=== PATIENT | female | born 1970 | race Caucasian/White ===

== ENCOUNTER 2018-07-21 11:17 | Emergency (ER) | payer OTHER ==
--- NOTE | 2018-07-21 11:50 | ER Report ---
History and Physical Time Seen By MD: 11:50 Hx. of Stated Complaint: BODY ACHES, HEADACHE, N/V HPI/ROS CHIEF COMPLAINT: Congestion, cough, shortness of breath, head pressure 2 days HISTORY OF PRESENT ILLNESS: 48-year-old female patient presents to emergency room with complaint of congestion, cough, shortness of breath, had pressure 2 days. 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 She states that she took a nap. She states upon waking after that that she had body aches, fevers, chills, cough, shortness of breath and head pressure. She states that currently her pain is a 7-8 out of 10. She states that it was worse over the last couple of days. She also mentions that she did have a fall 2 weeks ago and hit the back of her head. Patient denies having a flu shot this year. Patient states she's taken Sherry aspirin for this. 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 REVIEW OF SYSTEMS: Respiratory: As noted above. Cardiovascular: No chest pain, no palpitations. Gastrointestinal: No vomiting, no abdominal pain. Musculoskeletal: Generalized body aches. Allergies: Coded Allergies: cephalexin (Verified Allergy, Unknown, 07/21/18) Home Meds Active Scripts Ondansetron Hcl (ZOFRAN) 4 Mg Tablet, 4 MG PO Q6H PRN for NAUSEA/VOMITING, #20 TAB Prov:TASHA JOSHI [facility] 07/21/18 Benzonatate 100 Mg Cap (TESSALON PERLE 100 MG CAP) 100 Mg Capsule, 100 MG PO TID PRN for COUGH, #15 CAP Prov:TASHA JOSHI [facility] 07/21/18 Promethazine HCl/Codeine (Prometh-Codein 6.25-10 mg/5 ml) 5 Ml Syrup, 1 TSP PO QHS PRN for COUGH, #35 ML Prov:TASHA JOSHI [facility] 07/21/18 Oseltamivir Phosphate (TAMIFLU) 75 Mg Cap, 75 MG PO BID, #9 CAP Prov:TASHA JOSHI [facility] 07/21/18 Past Medical/Surgical History Patient has a past medical history of Lyme disease, cervical cancer. Patient has bilateral anterior cruciate ligament repairs, surgery for her cervical cancer. Reviewed Nurses Notes: Yes Constitutional Vital Sign - Last 24 Hours 07/21/18 07/21/18 07/21/18 07/21/18 11:20 11:47 11:49 12:00 Temp 99.9 Pulse 108 ??? Resp 22 B/P (MAP) 118/81 113/79 (90) 104/71 (82) Pulse Ox 96 O2 Delivery Room Air 07/21/18 07/21/18 07/21/18 07/21/18 12:17 12:30 12:47 13:00 Pulse 91 104 Resp 21 B/P (MAP) 104/75 (85) 107/71 (83) Pulse Ox 94 83 07/21/18 07/21/18 07/21/18 07/21/18 13:17 13:36 13:47 14:00 Pulse ??? 101 Resp 13 B/P (MAP) 113/79 (90) 118/65 (82) Pulse Ox 88 07/21/18 14:17 Pulse 93 Resp 15 Pulse Ox 95 Physical Exam General Appearance: The patient is alert, has no immediate need for airway protection and no current signs of toxicity. Respiratory: Chest is non tender, lungs are clear to auscultation. Cardiac: regular rate and rhythm Gastrointestinal: Abdomen is soft and non tender, no masses, bowel sounds normal. Musculoskeletal: Neck: Neck is supple and non tender. Extremities have full range of motion and are non tender. Skin: No rashes or lesions. DIFFERENTIAL DIAGNOSIS: After history and physical exam differential diagnosis w as considered for fever in adults including but not limited to pneumonia, urinary tract infection, viral syndrome, and influenza. Medical Decision Making Data Points Result Diagram: 07/21/18 1215 07/21/18 1215 Laboratory Hematology Test 07/21/18 11:57 07/21/18 12:15 07/21/18 12:40 Influenza Virus Type A (PCR) Positive (NEGATIVE) Influenza Virus Type B (PCR) Negative (NEGATIVE) Red Blood Count 4.93 M/uL (4.17-5.56) Mean Corpuscular Volume 83.3 fL (80.0-96.0) Mean Corpuscular Hemoglobin 28.4 pg (26.0-33.0) Mean Corpuscular Hemoglobin Concent 34.1 g/dL (32.0-36.0) Red Cell Distribution Width 14.5 % (11.5-14.5) Mean Platelet Volume 7.8 fL (7.2-11.1) Neutrophils (%) (Auto) 64.1 % (39.4-72.5) Lymphocytes (%) (Auto) 17.6 % (17.6-49.6) Monocytes (%) (Auto) 17.8 % (4.1-12.4) Eosinophils (%) (Auto) 0.1 % (0.4-6.7) Basophils (%) (Auto) 0.4 % (0.3-1.4) Nucleated RBC Relative Count (auto) 0.1 /100WBC Neutrophils # (Auto) 3.2 K/uL (2.0-7.4) Lymphocytes # (Auto) 0.9 K/uL (1.3-3.6) Monocytes # (Auto) 0.9 K/uL (0.3-1.0) Eosinophils # (Auto) 0.0 K/uL (0.0-0.5) Basophils # (Auto) 0.0 K/uL (0.0-0.1) Nucleated RBC Absolute Count (auto) 0.01 K/uL Erythrocyte Sedimentation Rate 20 mm/HOUR (0-20) Sodium Level 136 mmol/L (137-145) Potassium Level 4.0 mmol/L (3.5-5.0) Chloride Level 108 mmol/L (98-107) Carbon Dioxide Level 19 mmol/L (22-31) Blood Urea Nitrogen 14 mg/dl (7-18) Creatinine 0.70 mg/dl (0.52-1.04) Glomerular Filtration Rate Calc > 60.0 Random Glucose 100 mg/dl (75-110) Calcium Level 9.2 mg/dl (8.4-10.2) Total Bilirubin 0.7 mg/dl (0.2-1.3) Aspartate Amino Transf (AST/SGOT) 40 U/L (0-35) Alanine Aminotransferase (ALT/SGPT) 54 U/L (0-56) Alkaline Phosphatase 112 U/L (0-126) C-Reactive Protein 1.3 mg/dl (<1.0) Total Protein 7.1 g/dl (6.3-8.2) Albumin 4.2 g/dl (3.5-5.0) Human Chorionic Gonadotropin, Qual Negative (NEGATIVE) Urine Color Yellow Urine Clarity Slightly-cloudy Urine pH 5.0 pH (4.8-9.5) Urine Specific Paulina 1.019 Urine Protein Negative mg/dL (NEGATIVE) Urine Glucose (UA) Negative mg/dL (NEGATIVE) Urine Ketones Trace mg/dL (NEGATIVE) Urine Blood Negative (NEGATIVE) Urine Nitrite Negative (NEGATIVE) Urine Bilirubin Negative (NEGATIVE) Urine Urobilinogen 2.0 mg/dL (0.2-1.9) Urine Leukocyte Esterase Negative (NEGATIVE) Urine RBC None /HPF (0-2/HPF) Urine WBC 4 /HPF (0-5/HPF) Urine Squamous Epithelial Cells Many /LPF (</=FEW) Urine Bacteria Negative /HPF (NONE-FEW) Urine Mucus Few /HPF (NONE-FEW) Chemistry Test 07/21/18 11:57 07/21/18 12:15 07/21/18 12:40 Influenza Virus Type A (PCR) Positive (NEGATIVE) Influenza Virus Type B (PCR) Negative (NEGATIVE) White Blood Count 5.0 k/uL (4.5-11.0) Red Blood Count 4.93 M/uL (4.17-5.56) Hemoglobin 14.0 g/dL (12.0-16.0) Hematocrit 41.1 % (34.0-47.0) Mean Corpuscular Volume 83.3 fL (80.0-96.0) Mean Corpuscular Hemoglobin 28.4 pg (26.0-33.0) Mean Corpuscular Hemoglobin Concent 34.1 g/dL (32.0-36.0) Red Cell Distribution Width 14.5 % (11.5-14.5) Platelet Count 220 K/uL (150-450) Mean Platelet Volume 7.8 fL (7.2-11.1) Neutrophils (%) (Auto) 64.1 % (39.4-72.5) Lymphocytes (%) (Auto) 17.6 % (17.6-49.6) Monocytes (%) (Auto) 17.8 % (4.1-12.4) Eosinophils (%) (Auto) 0.1 % (0.4-6.7) Basophils (%) (Auto) 0.4 % (0.3-1.4) Nucleated RBC Relative Count (auto) 0.1 /100WBC Neutrophils # (Auto) 3.2 K/uL (2.0-7.4) Lymphocytes # (Auto) 0.9 K/uL (1.3-3.6) Monocytes # (Auto) 0.9 K/uL (0.3-1.0) Eosinophils # (Auto) 0.0 K/uL (0.0-0.5) Basophils # (Auto) 0.0 K/uL (0.0-0.1) Nucleated RBC Absolute Count (auto) 0.01 K/uL Erythrocyte Sedimentation Rate 20 mm/HOUR (0-20) Glomerular Filtration Rate Calc > 60.0 Calcium Level 9.2 mg/dl (8.4-10.2) Total Bilirubin 0.7 mg/dl (0.2-1.3) Aspartate Amino Transf (AST/SGOT) 40 U/L (0-35) Alanine Aminotransferase (ALT/SGPT) 54 U/L (0-56) Alkaline Phosphatase 112 U/L (0-126) C-Reactive Protein 1.3 mg/dl (<1.0) Total Protein 7.1 g/dl (6.3-8.2) Albumin 4.2 g/dl (3.5-5.0) Human Chorionic Gonadotropin, Qual Negative (NEGATIVE) Urine Color Yellow Urine Clarity Slightly-cloudy Urine pH 5.0 pH (4.8-9.5) Urine Specific Paulina 1.019 Urine Protein Negative mg/dL (NEGATIVE) Urine Glucose (UA) Negative mg/dL (NEGATIVE) Urine Ketones Trace mg/dL (NEGATIVE) Urine Blood Negative (NEGATIVE) Urine Nitrite Negative (NEGATIVE) Urine Bilirubin Negative (NEGATIVE) Urine Urobilinogen 2.0 mg/dL (0.2-1.9) Urine Leukocyte Esterase Negative (NEGATIVE) Urine RBC None /HPF (0-2/HPF) Urine WBC 4 /HPF (0-5/HPF) Urine Squamous Epithelial Cells Many /LPF (</=FEW) Urine Bacteria Negative /HPF (NONE-FEW) Urine Mucus Few /HPF (NONE-FEW) Urinalysis Test 07/21/18 12:40 Urine Color Yellow Urine Clarity Slightly-cloudy Urine pH 5.0 pH (4.8-9.5) Urine Specific Paulina 1.019 Urine Protein Negative mg/dL (NEGATIVE) Urine Glucose (UA) Negative mg/dL (NEGATIVE) Urine Ketones Trace mg/dL (NEGATIVE) Urine Blood Negative (NEGATIVE) Urine Nitrite Negative (NEGATIVE) Urine Bilirubin Negative (NEGATIVE) Urine Urobilinogen 2.0 mg/dL (0.2-1.9) Urine Leukocyte Esterase Negative (NEGATIVE) Urine RBC None /HPF (0-2/HPF) Urine WBC 4 /HPF (0-5/HPF) Urine Squamous Epithelial Cells Many /LPF (</=FEW) Urine Bacteria Negative /HPF (NONE-FEW) Urine Mucus Few /HPF (NONE-FEW) EKG/Imaging Imaging Exam type: ABDOMEN AP ERECT AND/OR DECUB History: Fever, shortness of breath Comparison: None. Findings: Supine and upright views the abdomen demonstrate a nonspecific bowel gas pattern. There is no gross evidence of pathologic intra-abdominal calcifications. The spleen appears prominent measuring 17.5 cm in length. There are mild spondylotic changes of the lower lumbar spine. IMPRESSION: 1. Nonspecific bowel gas pattern Spleen appears prominent Report Dictated By: Trinh Mancia MD at 07/21/2018 1:51 PM Report E-Signed By: Trinh Mancia MD at 07/21/2018 1:52 PM Exam type: CHEST PA LAT History: Fever and shortness of breath Comparison: None. Findings: There is mild tenting of the diaphragmatic pleura on the left. Lungs are free of acute effusions, infiltrates or edema. The cardiac silhouette is normal in size. There are several serpiginous faintly opaque foreign bodies projecting over the lateral aspect the right upper thorax in the lateral aspect left mid thorax. On the lateral view these appear to be external to the patient's chest. IMPRESSION: 1. No acute cardiac pulmonary process is seen There is mild tenting of the diaphragmatic pleura on the left likely related to scarring Report Dictated By: Trinh Mancia MD at 07/21/2018 1:49 PM Report E-Signed By: Trinh Mancia MD at 07/21/2018 1:51 PM EXAMINATION: CT head without IV contrast HISTORY: Headache. COMPARISON: None. TECHNIQUE: Contiguous axial images were obtained from the skull base to the vertex without intravenous contrast. Sagittal and coronal reformatted images are also submitted. One of the following dose optimization techniques was utilized in the performance of this exam: Automated exposure control; adjustment of the mA and/or kV according to the patient's size; or use of an iterative reconstruction technique. Specific details can be referenced in the facility's radiology CT exam operational policy. FINDINGS: Brain volume: Normal. Ventricles: Normal. Acute ischemic changes: None. Hemorrhage: No acute intracranial hemorrhage. Masses/edema: None. Felipe-white: Negative. White matter: Normal. Vessels: Negative. Extra-axial: Negative. Calvarium/scalp: Negative. Skull base/visualized face: Negative. Visualized sinuses/orbits: Mild mucosal thickening in the paranasal sinuses, w orst in the ethmoid air cells. Mild nasal septal deviation to the right anteriorly. IMPRESSION: No acute hemorrhage or intracranial mass lesion. No CT evidence of acute infarct. Report Dictated By: Joleen Dewey MD at 07/21/2018 1:56 PM Report E-Signed By: Joleen Dewey MD at 07/21/2018 1:59 PM ED Course/Re-evaluation ED Course Patient was admitted to an exam room, history of physical were obtained. Differential diagnoses were considered. On examination lungs are clear, heart is regular although tachycardia, abdomen was soft and nontender. With a sudden onse t of symptoms was my initial impression that this was likely influenza. A CBC, CMP, influenza screen were done. Patient states she did have a fall 2 weeks ago hit her head. As result CT scan of the head was done as well as a chest and abdominal x-ray. The lab results were unremarkable except for the patient was positive for influenza A. Imaging results were unremarkable, although did show a prominent spleen, I believe this likely secondary to viral illness. I discussed the findings with the patient. Since I saw the influenza a result I did give the patient her first dose of Tamiflu. Patient will be discharged home at this time. She'll be given a prescription for Tamiflu, promethazine with codeine cough syrup for nighttime, Tessalon Perles and Zofran to take as needed for cough and nausea and vomiting respectively. Patient is return to emergency room if condition worsens. Patient verbalized understanding and agreement with plan. Decision to Disposition Date: Jul 21, 2018 Decision to Disposition Time: 14:15 Depart Departure Latest Vital Signs Vital Signs Date Time Temp Pulse Resp B/P (MAP) Pulse Ox O2 Delivery O2 Flow Rate FiO2 07/21/18 14:17 93 15 95 07/21/18 14:00 118/65 (82) 07/21/18 11:20 99.9 Room Air Impression: Primary Impression: Influenza A Condition: Improved Disposition: HOME OR SELF-CARE New Scripts Ondansetron Hcl (ZOFRAN) 4 Mg Tablet 4 MG PO Q6H PRN for NAUSEA/VOMITING, #20 TAB Prov: TASHA JOSHI 07/21/18 Benzonatate 100 Mg Cap (TESSALON PERLE 100 MG CAP) 100 Mg Capsule 100 MG PO TID PRN for COUGH, #15 CAP Prov: TASHA JOSHI 07/21/18 Promethazine HCl/Codeine (Prometh-Codein 6.25-10 mg/5 ml) 5 Ml Syrup 1 TSP PO QHS PRN for COUGH, #35 ML Prov: TASHA JOSHI 07/21/18 Oseltamivir Phosphate (TAMIFLU) 75 Mg Cap 75 MG PO BID, #9 CAP Prov: TASHA JOSHI 07/21/18 Patient Instructions: Influenza (ED) Additional Instructions: Increase fluid intake. Get plenty of rest. Follow up with your primary care provider in 1 week. Return to the ER if condition worsens. Stay home until fever free for 24 hours. TASHA JOSHI Jul 21, 2018 11:50
[2018-07-21] MEDS ORDERED: NS(*) 0.9% 1000 ML BAG 1,000 ML IV ONE (11:55)
[2018-07-21] MEDS ORDERED: ONDANSETRON 4 MG ODT TABDP SL ONE (11:55)
[2018-07-21 12:20] LABS: PLATELET COUNT, AUTOMATED 220 K/uL (150-450)
[2018-07-21] MEDS ORDERED: ONDANSETRON 4 MG/2 ML VIAL IVP ONE (12:25)
[2018-07-21] MEDS ORDERED: OSELTAMIVIR PHOS 75 MG CAP PO ONE (12:50)
--- NOTE | 2018-07-21 13:55 | RADIOLOGY IMAGING REPORT ---
FACILITY: [facility] PATIENT NAME: Antonietta Roe : 1970 MR: [id number] V: [id number] EXAM DATE: ORDERING PHYSICIAN: TASHA JOSHI TECHNOLOGIST: Location: [facility] [place] Patient: Antonietta Roe : 1970 Visit/Account:[id number] Date of Sevice: 07/21/2018 Exam type: CHEST PA LAT History: Fever and shortness of breath Comparison: None. Findings: There is mild tenting of the diaphragmatic pleura on the left. Lungs are free of acute effusions, in filtrates or edema. The cardiac silhouette is normal in size. There are several serpiginous faintly opaque foreign bodies projecting over the lateral aspect the right upper thorax in the lateral aspec t left mid thorax. On the lateral view these appear to be external to the patient's chest. IMPRESSION: 1. No acute cardiac pulmonary process is seen There is mild tenting of the diaphragmatic pleura on the left likely related to scarring Report Dictated By: Trinh Mancia MD at 07/21/2018 1:49 PM Report E-Signed By: Trinh Mancia MD at 07/21/2018 1:51 PM WSN:[email or web address]
--- NOTE | 2018-07-21 13:56 | RADIOLOGY IMAGING REPORT ---
FACILITY: [facility] - [place], [place] PATIENT NAME: Antonietta Roe : 1970 MR: [id number] V: [id number] EXAM DATE: ORDERING PHYSICIAN: TASHA JOSHI TECHNOLOGIST: Location: [facility] - [place] Patient: Antonietta Roe : 1970 Visit/Account:[id number] Date of Sevice: 07/21/2018 Exam type: ABDOMEN AP ERECT AND/OR DECUB History: Fever, shortness of breath Comparison: None. Findings: Supine and upright views the abdomen demonstrate a nonspecific bowel gas pattern. There is no gross evidence of pathologic intra-abdominal calcifications. The spleen appears prominent measuring 17.5 c m in length. There are mild spondylotic changes of the lower lumbar spine. IMPRESSION: 1. Nonspecific bowel gas pattern Spleen appears prominent Report Dictated By: Trinh Mancia MD at 07/21/2018 1:51 PM Report E-Signed By: Trinh Mancia MD at 07/21/2018 1:52 PM WSN:[email or web address]
[2018-07-21 14:00] VITALS: BP 118/65
--- NOTE | 2018-07-21 14:03 | RADIOLOGY IMAGING REPORT ---
FACILITY: [facility] - [place] PATIENT NAME: Antonietta Roe : 1970 MR: [id number] V: [id number] EXAM DATE: ORDERING PHYSICIAN: TASHA JOSHI TECHNOLOGIST: Location: [facility] Patient: Antonietta Roe : 1970 Visit/Account:[id number] Date of Sevice: 07/21/2018 EXAMINATION: CT head without IV contrast HISTORY: Headache. COMPARISON: None. TECHNIQUE: Contiguous axial images were obtained from the skull base to the vertex without intraven ous contrast. Sagittal and coronal reformatted images are also submitted. One of the following dose optimization techniques was utilized in the performance of this exam: Autom ated exposure control; adjustment of the mA and/or kV according to the patient's size; or use of an i terative reconstruction technique. Specific details can be referenced in the facility's radiology C T exam operational policy. FINDINGS: Brain volume: Normal. Ventricles: Normal. Acute ischemic changes: None. Hemorrhage: No acute intracranial hemorrhage. Masses/edema: None. Felipe-white: Negative. White matter: Normal. Vessels: Negative. Extra-axial: Negative. Calvarium/scalp: Negative. Skull base/visualized face: Negative. Visualized sinuses/orbits: Mild mucosal thickening in the paranasal sinuses, worst in the ethmoid ai r cells. Mild nasal septal deviation to the right anteriorly. IMPRESSION: No acute hemorrhage or intracranial mass lesion. No CT evidence of acute infarct. Report Dictated By: Joleen Dewey MD at 07/21/2018 1:56 PM Report E-Signed By: Joleen Dewey MD at 07/21/2018 1:59 PM WSN:[email or web address]
[2018-07-21] MEDS ORDERED: BENZ100C4 PO (14:12)
[2018-07-21] MEDS ORDERED: PROM5SYR PO (14:12)
[2018-07-21] MEDS ORDERED: OSE75 PO (14:12)
[2018-07-21] MEDS ORDERED: ONDA4TAB97 PO (14:12)
== END 2018-07-21 14:28 | disposition home or self-care (01) ==
LOC: ER 11:17
DX: J11.1 Influenza due to unidentified influenza virus with other respiratory manifestations (principal); R00.0 Tachycardia, unspecified
CPT/HCPCS: 70450; 71046; 74019; 81001; 84703; 85025; 85651; 86140; 87502; 96360; 99284; J7030; 82040; 82247; 82310; 82374; 82435; 82565; 82947; 84075; 84132; 84155; 84295; 84450; 84460; 84520